=== PATIENT | female | born 1990 | race Caucasian/White ===

== ENCOUNTER 2017-12-02 14:02 | Emergency (ER) | payer SELFPAY ==
[2017-12-02] MEDS ORDERED: NA CHLORIDE 0.9% 1,000 ML ONE (16:56)
[2017-12-02] MEDS ORDERED: ONDANSETRON 4 MG/2 ML VIAL ONE (16:56)
--- NOTE | 2017-12-02 17:48 | ER ---
Nurse's Notes [facility] Name: Alis Baumann Age: 27 yrs Sex: Female : 1990 Arrival Date: 12/02/2017 Time: 14:05 Bed 25 Private MD: None, None Diagnosis: Acute pharyngitis Presentation: 12/02 14:22 Presenting complaint: Patient states: headache, vomiting, sore throat, tired, feeling ch hot and cold started Friday. Transition of care: patient was not received from another setting of care. Onset of symptoms was November 30, 2017. Initial Sepsis Screen: Does the patient meet any 2 criteria? No. Patient's initial sepsis screen is negative. Does the patient have a suspected source of infection? No. Patient's initial sepsis screen is negative. 14:22 Method Of Arrival: Ambulatory 14:22 Acuity: MELODY 4 19:07 Care prior to arrival: None. aj1 Triage Assessment: 14:23 Headache History: The patient has had previous headaches. General: Appears in no ch apparent distress. comfortable, Behavior is calm, cooperative, appropriate for age. Pain: Complains of pain in right frontal area and right temporal area Pain currently is 8 out of 10 on a pain scale. Pain began gradually. Neuro: Level of Consciousness is awake, alert, obeys commands, Oriented to person, place, time, situation, Reports headache. 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 - Social history:: Smoking status: Patient/guardian denies using tobacco, Patient/guardian denies using alcohol, street drugs. Screenin:45 Abuse screen: Denies threats or abuse. Denies injuries from another. Nutritional aj1 screening: No deficits noted. Tuberculosis screening: No symptoms or risk factors identified. Fall Risk None identified. Assessment: 16:45 General: Appears in no apparent distress. uncomfortable, Behavior is calm, cooperative, aj1 appropriate for age. Pain: Complains of pain in left aspect of posterior pharynx and right aspect of posterior pharynx Pain does not radiate. Pain currently is 8 out of 10 on a pain scale. Quality of pain is described as sharp. Neuro: Level of Consciousness is awake, alert, obeys commands, Oriented to person, place, time, situation, Speech is normal, Facial symmetry appears normal. Cardiovascular: Patient's skin is warm and dry. Respiratory: Airway is patent Respiratory effort is even, unlabored, Respiratory pattern is regular, symmetrical. GI: No signs and/or symptoms were reported involving the gastrointestinal system. : No signs and/or symptoms were reported regarding the genitourinary system. EENT: Throat is reddened has enlarged tonsils bilaterally. Derm: No signs and/or symptoms reported regarding the dermatologic system. Skin is pink, warm \T\ dry. normal. Musculoskeletal: No signs and/or symptoms reported regarding the musculoskeletal system. Circulation, motion, and sensation intact. 17:45 Reassessment: Patient appears in no apparent distress at this time. No changes from [facility] previously documented assessment. Patient and/or family updated on plan of care and expected duration. Pain level reassessed. Patient is alert, oriented x 3, equal unlabored respirations, skin warm/dry/pink. 18:45 Reassessment: Patient appears in no apparent distress at this time. No changes from [facility] previously documented assessment. Patient and/or family updated on plan of care and expected duration. Pain level reassessed. Patient is alert, oriented x 3, equal unlabored respirations, skin warm/dry/pink. Vital Signs: 14:23 BP 112 / 78; Pulse 92; Resp 16; Temp 98.9(O); Pulse Ox 99% on R/A; Weight 89.81 kg; Height 5 ft. 1 in. (154.94 cm); Pain 9/10; 16:45 BP 116 / 82; Pulse 88; Resp 18; Pulse Ox 99% on R/A; aj1 17:45 BP 127 / 77; Pulse 76; Resp 18; Pulse Ox 99% ; aj1 19:07 BP 122 / 65; Pulse 75; Resp 18; Pulse Ox 99% ; aj1 14:23 Body Mass Index 37.41 (89.81 kg, 154.94 cm) ED Course: 14:05 Patient arrived in ED. mr 14:06 None, None is Private Physician. mr 14:23 Triage completed. 14:23 Arm band placed on right wrist. Patient placed in waiting room. 15:39 Sabra Jorge FNP-C is [facility]. kb 15:39 Vincent Gonzales MD is Attending Physician. kb 16:45 Jocelyn Velazco, RN is Primary Nurse. aj1 16:45 Patient has correct armband on for positive identification. Bed in low position. Call aj1 light in reach. 16:45 No provider procedures requiring assistance completed. Inserted saline lock: 20 gauge aj1 in right antecubital area, using aseptic technique. 19:07 IV discontinued, intact, bleeding controlled, No redness/swelling at site. Pressure aj1 dressing applied. Administered Medications: 17:11 Drug: NS 0.9% 1000 ml Route: IV; Rate: 1000 ml; Site: right antecubital; aj1 19:08 Follow up: IV Status: Completed infusion; IV Intake: 1000ml aj 17:12 Drug: Zofran 4 mg Route: IVP; Site: right antecubital; aj1 19:08 Follow up: Response: No adverse reaction aj Intake: 19:08 IV: 1000ml; Total: 1000ml. aj Outcome: 17:47 Discharge ordered by . kb 19:07 Discharged to home ambulatory. aj1 19:07 Condition: good 19:07 Discharge instructions given to patient, Instructed on discharge instructions, follow up and referral plans. Demonstrated understanding of instructions, follow-up care. 19:08 Patient left the ED. aj Signatures: Sabra Jorge FNP-C FNP-Ckb Hammond, Christina, RN RN Jocelyn Velazco RN RN [facility] Arlyn Saucedo
--- NOTE | 2017-12-02 17:48 | EDPHYS ---
Physician Documentation [facility] Name: Alis Baumann Age: 27 yrs Sex: Female : 1990 Arrival Date: 12/02/2017 Time: 14:05 Bed 25 Private MD: None, None ED Physician Vincent Gonzales HPI: 12/02 17:16 This 27 yrs old Female presents to ER via Ambulatory with complaints of kb Headache, Vomiting. 17:16 This 27 yrs old Female presents to ER via Ambulatory with complaints of sore kb throat. 17:16 The patient presents with sore throat. The patient describes throat pain as constant. kb 17:16 Onset: The symptoms/episode began/occurred 2 day(s) ago. Severity of symptoms: At their kb worst the symptoms were moderate, in the emergency department the symptoms are unchanged. Modifying factors: The symptoms are alleviated by nothing, the symptoms are aggravated by swallowing, Patient's oral intake status: good Denies contact with similarly ill indivduals. Associated signs and symptoms: Pertinent positives: headache, nausea, rhinorrhea, Sore throat vomiting. The patient has not experienced similar symptoms in the past. The patient has not recently seen a physician. 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 - Social history:: Smoking status: Patient/guardian denies using tobacco, Patient/guardian denies using alcohol, street drugs. ROS: 17:18 Cardiovascular: Negative for chest pain, palpitations, and edema, Respiratory: Negative kb for shortness of breath, cough, wheezing, and pleuritic chest pain, Back: Negative for injury and pain, : Negative for injury, bleeding, discharge, and swelling, MS/Extremity: Negative for injury and deformity, Skin: Negative for injury, rash, and discoloration. 17:18 Constitutional: Positive for fever, malaise, Negative for body aches, chills, fatigue, poor PO intake, weight loss. 17:18 ENT: Positive for rhinorrhea, sinus congestion, sore throat. 17:18 Abdomen/GI: Positive for nausea and vomiting, Negative for abdominal pain, diarrhea, constipation, abdominal cramps, abdominal distension, anorexia. Exam: 17:24 Constitutional: This is a well developed, well nourished patient who is awake, alert, kb and in no acute distress. Head/Face: Normocephalic, atraumatic. Chest/axilla: Normal chest wall appearance and motion. Nontender with no deformity. No lesions are appreciated. Cardiovascular: Regular rate and rhythm with a normal S1 and S2. No gallops, murmurs, or rubs. Normal PMI, no JVD. No pulse deficits. Respiratory: Lungs have equal breath sounds bilaterally, clear to auscultation and percussion. No rales, rhonchi or wheezes noted. No increased work of breathing, no retractions or nasal flaring. Abdomen/GI: Soft, non-tender, with normal bowel sounds. No distension or tympany. No guarding or rebound. No evidence of tenderness throughout. Skin: Warm, dry with normal turgor. Normal color with no rashes, no lesions, and no evidence of cellulitis. MS/ Extremity: Pulses equal, no cyanosis. Neurovascular intact. Full, normal range of motion. Neuro: Awake and alert, GCS 15, oriented to person, place, time, and situation. Cranial nerves II-XII grossly intact. Motor strength 5/5 in all extremities. Sensory grossly intact. Cerebellar exam normal. Normal gait. 17:24 ENT: External ear(s): are unremarkable, Ear canal(s): are normal, TM's: are normal, Nose: is normal, Mouth: is normal, Posterior pharynx: Airway: normal, Tonsils: bilaterally enlarged, with erythema, Uvula: normal, midline, swelling, that is moderate, erythema, that is mild, exudate, is not appreciated. Vital Signs: 14:23 BP 112 / 78; Pulse 92; Resp 16; Temp 98.9(O); Pulse Ox 99% on R/A; Weight 89.81 kg; ch Height 5 ft. 1 in. (154.94 cm); Pain 9/10; 16:45 BP 116 / 82; Pulse 88; Resp 18; Pulse Ox 99% on R/A; aj1 17:45 BP 127 / 77; Pulse 76; Resp 18; Pulse Ox 99% ; aj1 19:07 BP 122 / 65; Pulse 75; Resp 18; Pulse Ox 99% ; aj1 14:23 Body Mass Index 37.41 (89.81 kg, 154.94 cm) MDM: 15:46 Patient medically screened. kb 17:18 Data reviewed: vital signs, nurses notes. Data interpreted: Pulse oximetry: on room air kb is 99 %. Interpretation: normal. 17:46 Counseling: I had a detailed discussion with the patient and/or guardian regarding: the kb historical points, exam findings, and any diagnostic results supporting the discharge/admit diagnosis, lab results, the need for outpatient follow up, a family practitioner, to return to the emergency department if symptoms worsen or persist or if there are any questions or concerns that arise at home. 12/02 14:23 Order name: Flu; Complete Time: 15:40 12/02 14:23 Order name: Strep; Complete Time: 15:40 12/02 15:04 Order name: Throat Culture EDMS 12/02 15:51 Order name: [place] Screen Profile; Complete Time: 17:43 kb 12/02 17:36 Order name: Urine Dipstick--Ancillary (enter results); Complete Time: 17:54 ag 12/02 17:36 Order name: Urine --Ancillary (enter results); Complete Time: 17:54 ag 12/02 15:51 Order name: Urine Dipstick-Ancillary (obtain specimen); Complete Time: 17:56 kb Administered Medications: 17:11 Drug: NS 0.9% 1000 ml Route: IV; Rate: 1000 ml; Site: right antecubital; aj1 19:08 Follow up: IV Status: Completed infusion; IV Intake: 1000ml aj1 17:12 Drug: Zofran 4 mg Route: IVP; Site: right antecubital; aj1 19:08 Follow up: Response: No adverse reaction aj1 Disposition: 12/02/17 17:47 Discharged to Home. Impression: Acute pharyngitis. - Condition is Stable. - Discharge Instructions: Pharyngitis, [id number], Viral Infections, [id number], Sore Throat, [id number]. - Medication Reconciliation Form, Thank You Letter, Antibiotic Education, Prescription Opioid Use form. - Follow up: Emergency Department; When: As needed; Reason: Worsening of condition. Follow up: Private Physician; When: 2 - 3 days; Reason: Recheck today's complaints, Continuance of care, Re-evaluation by your physician. Addendum: 12/07/2017 19:50 Co-signature as Attending Physician, Vincent Gonzales MD. m a2 Signatures: Dispatcher [employer] EDMS Sabra Jorge, HERIBERTO-C CLASS A LINEMAN-Marely Brown RN RN Jocelyn Peters RN RN aj1 Vincent Gonzales MD MD ma2 Corrections: (The following items were deleted from the chart) 12/02 19:08 17:47 12/02/2017 17:47 Discharged to Home. Impression: Acute pharyngitis. Condition is aj1 Stable. Forms are Medication Reconciliation Form, Thank You Letter, Antibiotic Education, Prescription Opioid Use. Follow up: Emergency Department; When: As needed; Reason: Worsening of condition. Follow up: Private Physician; When: 2 - 3 days; Reason: Recheck today's complaints, Continuance of care, Re-evaluation by your physician. kb
[2017-12-02 17:53] LABS: Urine Blood NEGATIVE (NEG); Urine Glucose NEGATIVE (NEG); Urine Protein 2+ (NEG); Urine pH 7.5 (5.0-7.0)
[2017-12-02 19:13] VITALS: TEMP 98.9; O2SAT 99
[2017-12-02 19:17] VITALS: BP 122/65
== END 2017-12-02 19:08 | disposition home or self-care (01) ==
LOC: ER 14:02
DX: J02.9 Acute pharyngitis, unspecified (principal); R11.10 Vomiting, unspecified
CPT/HCPCS: 36415; 81003; 81025; 86308; 87070; 87081; 87804; 96361; 96374; 99283; J2405; J7030

== ENCOUNTER 2019-10-10 04:05 | Emergency (ER) | payer SELFPAY ==
--- OUTSIDE RECORDS SUMMARY | 2019-10-10 04:08 | XMS REPORT ---
:1990 [facility] Address [address] [place] [address] Dr. Bernabe [address] [place] [id number] Care Team Providers Name Role Phone Unavailable Unavailable Unavailable Problems This patient has no known problems. Allergies, Adverse Reactions, Alerts This patient has no known allergies or adverse reactions. Medications This patient has no known medications.
[2019-10-10] MEDS ORDERED: MORPHINE 4 MG/ML SYR ONE (04:30)
[2019-10-10] MEDS ORDERED: ONDANSETRON 4 MG/2 ML VIAL ONE (04:30)
[2019-10-10] MEDS ORDERED: MAGNE/ALUM HYDROXD 30 ML UCUP ONE (04:30)
[2019-10-10] MEDS ORDERED: FAMOTIDINE 20 MG/2 ML VIAL IV ONE (04:31)
[2019-10-10] MEDS ORDERED: LIDOCAINE VISCOUS 2% SOLN 15 ML UDC ONE (04:31)
[2019-10-10] MEDS ORDERED: NA CHLORIDE 0.9% 1,000 ML ONE (04:31)
[2019-10-10 04:50] LABS: Absolute Lymphocytes (CBC) 3.1 K/uL (0.7-4.9); Basophils % 0.6 % (0-1.3); Hematocrit 30.3 % (36.0-45.0); Lymphocytes % 33.9 % (15.3-44.8); MPV 8.7 fL (7.6-11.3); RBC Red Blood Cell Count 4.43 M/uL (3.86-4.86)
[2019-10-10 05:08] LABS: ALT/SGPT 20 U/L (12-78); AST/SGOT 14 U/L (15-37); Albumin 3.5 g/dL (3.4-5.0); Alkaline Phosphatase 77 U/L (45-117); BUN Blood Urea Nitrogen 11 mg/dL (7-18); Bicarbonate 28 mmol/L (21-32); Bilirubin Direct < 0.1 mg/dL (0-0.2); Bilirubin Total 0.2 mg/dL (0.2-1.0); Glucose Level 102 mg/dL (74-106); Lipase 157 U/L (73-393); Potassium 3.4 mmol/L (3.5-5.1); Protein, Total 7.8 g/dL (6.4-8.2); Sodium Level 139 mmol/L (136-145)
--- NOTE | 2019-10-10 05:54 | ER ---
Nurse's Notes [facility] Name: Alis Baumann Age: 28 yrs Sex: Female : 1990 Arrival Date: 10/10/2019 Time: 04:10 Bed 14 Private MD: Diagnosis: Upper abdominal pain, unspecified Presentation: 10/09 04:12 Chief complaint: Patient states: Mid chest pressure constant for 2 weeks int. N/V for 2 ll1 weeks constantly. Coronavirus screen: The patient has NOT traveled to a country currently being monitored by the [facility] within the last 14 days. Proceed with normal triage procedures. Ebola Screen: Patient denies travel to an Ebola-affected area in the 21 days before illness onset. Initial Sepsis Screen: Does the patient meet any 2 criteria? No. Patient's initial sepsis screen is negative. Does the patient have a suspected source of infection? No. Patient's initial sepsis screen is negative. Risk Assessment: Do you want to hurt yourself or someone else? Patient reports no desire to harm self or others. 04:12 Method Of Arrival: Ambulatory ll1 04:12 Acuity: MELODY 3 ll1 04:53 Onset of symptoms is unknown. RATING EXAMINER: 04:52 LMP 09/2019 Historical: - Allergies: 04:14 Ibuprofen; ll1 - PMHx: 04:14 Endometrosis; ll1 - PSHx: 04:14 None; ll1 - Immunization history:: Flu vaccine is not up to date. - Social history:: Patient/guardian denies using alcohol, street drugs, tobacco products, Patient/guardian denies using The patient lives with spouse, Smoking status: Patient/guardian denies using. - Family history:: not pertinent. Screenin:51 Abuse screen: Denies threats or abuse. Denies injuries from another. Nutritional screening: No deficits noted. Tuberculosis screening: No symptoms or risk factors identified. Fall Risk None identified. Assessment: 04:20 General: Appears in no apparent distress. uncomfortable, Behavior is calm, cooperative, wh appropriate for age. Pain: Complains of pain in diaphragm and mid-sternal area and abdominal pain Pain does not radiate. Pain currently is 8 out of 10 on a pain scale. Quality of pain is described as pressure, Pain began 2 weeks ago Is intermittent. Neuro: Level of Consciousness is awake, alert, obeys commands, Oriented to person, place, time, situation, Appropriate for age. Cardiovascular: Reports chest pain, Heart tones S1 S2 Rhythm is regular. Respiratory: Airway is patent Respiratory effort is even, unlabored, Respiratory pattern is regular, symmetrical, Breath sounds are clear bilaterally. GI: Abdomen is flat, non-distended, Bowel sounds present X 4 quads. Abd is soft and non tender X 4 quads. Reports nausea, vomiting. : No signs and/or symptoms were reported regarding the genitourinary system. EENT: No signs and/or symptoms were reported regarding the EENT system. Derm: Skin is intact, is healthy with good turgor, Skin is pink, warm \T\ dry. normal. Musculoskeletal: Circulation, motion, and sensation intact. 06:07 Reassessment: Patient appears in no apparent distress at this time. No changes from previously documented assessment. Patient and/or family updated on plan of care and expected duration. Pain level reassessed. Patient is alert, oriented x 3, equal unlabored respirations, skin warm/dry/pink. Patient states feeling better. Patient states symptoms have improved. Vital Signs: 04:12 BP 122 / 51; Pulse 72; Resp 18; Temp 97.4; Pulse Ox 100% ; Weight 81.65 kg; Height 4 ll1 ft. 9 in. (144.78 cm); Pain 10/10; 04:52 BP 126 / 69; Pulse 59; Resp 18; Pulse Ox 99% on R/A; wh 06:07 BP 117 / 74; Pulse 54; Resp 18; Pulse Ox 98% on R/A; wh 04:12 Body Mass Index 38.95 (81.65 kg, 144.78 cm) ll1 ED Course: 04:10 Patient arrived in ED. es 04:12 Vincent Gonzales MD is Attending Physician. ma2 04:14 Triage completed. ll1 04:14 Arm band placed on Patient placed in an exam room. ll1 04:23 Sonya Craven is Primary Nurse. wh 04:28 EKG completed in triage. Results shown to MD. ll1 04:30 Patient has correct armband on for positive identification. Placed in gown. Bed in low position. Call light in reach. Side rails up X 1. Pulse ox on. NIBP on. 04:40 Inserted saline lock: 20 gauge in right antecubital area, using aseptic technique. Blood collected. Patient maintains SpO2 saturation greater than 95% on room air. 06:10 No provider procedures requiring assistance completed. IV discontinued, intact, bleeding controlled, No redness/swelling at site. Administered Medications: 04:40 Drug: GI Cocktail without - (Maalox Suspension 30 ml, Lidocaine Liquid 2 % 15 wh ml) Route: PO; 06:07 Follow up: Response: No adverse reaction; Pain is decreased 04:41 Drug: NS 0.9% 1000 ml Route: IV; Rate: 1 bolus; Site: right antecubital; 06:08 Follow up: Response: No adverse reaction; IV Status: Completed infusion 04:43 Drug: Pepcid 20 mg Route: IVP; Site: right antecubital; 06:08 Follow up: Response: No adverse reaction 04:45 Drug: morphine 4 mg {Note: RASS 0.} Route: IVP; Site: right antecubital; 06:08 Follow up: Response: No adverse reaction; Pain is decreased; RASS: Alert and Calm (0) 04:47 Drug: Zofran (Ondansetron) 4 mg Route: IVP; Site: right antecubital; 06:08 Follow up: Response: No adverse reaction; Nausea is decreased Outcome: 05:53 Discharge ordered by MD. sung 06:10 Discharged to home ambulatory, with family. 06:10 Condition: stable 06:10 Discharge instructions given to patient, family, Instructed on discharge instructions, follow up and referral plans. medication usage, POC Demonstrated understanding of instructions, follow-up care, medications, POC Prescriptions given X 2. 06:10 Patient left the ED. Signatures: Patricia Ron Winsy Vincent Gonzales MD MD ma2 Florian Romano RN RN ll1
--- NOTE | 2019-10-10 05:54 | EDPHYS ---
Physician Documentation [facility] Name: Alis Baumann Age: 28 yrs Sex: Female : 1990 Arrival Date: 10/10/2019 Time: 04:10 Bed 14 Private MD: ED Physician Vincent Gonzales HPI: 10/09 05:51 This 28 yrs old Female presents to ER via Ambulatory with complaints of Chest ma2 Pain, Vomiting. 05:51 The patient or guardian reports chest pain that is located primarily in the epigastric ma2 area. The pain does not radiate. Associated signs and symptoms: Pertinent negatives: cough, headache, lower extremity swelling. The chest pain is described as burning. Severity of pain: At its worst the pain was mild in the emergency department the pain is unchanged. The patient has experienced similar episodes in the past. 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 - Social history:: Patient/guardian denies using alcohol, street drugs, tobacco products, Patient/guardian denies using The patient lives with spouse, Smoking status: Patient/guardian denies using. - Family history:: not pertinent. ROS: 05:51 Constitutional: Negative for fever, chills, and weight loss, Cardiovascular: Negative ma2 for chest pain, palpitations, and edema, Respiratory: Negative for shortness of breath, cough, wheezing, and pleuritic chest pain, Abdomen/GI: Negative for abdominal pain, nausea, diarrhea, and constipation, Back: Negative for injury and pain, : Negative for injury, bleeding, discharge, and swelling, MS/Extremity: Negative for injury and deformity, Skin: Negative for injury, rash, and discoloration, Neuro: Negative for headache, weakness, numbness, tingling, and seizure, Psych: Negative for depression, anxiety, suicide ideation, homicidal ideation, and hallucinations, Allergy/Immunology: Negative for hives, rash, and allergies, Endocrine: Negative for neck swelling, polydipsia, polyuria, polyphagia, and marked weight changes. 05:51 All other systems are negative. Exam: 05:51 Constitutional: This is a well developed, well nourished patient who is awake, alert, ma2 and in no acute distress. Chest/axilla: Normal chest wall appearance and motion. Nontender with no deformity. No lesions are appreciated. Cardiovascular: Regular rate and rhythm with a normal S1 and S2. No gallops, murmurs, or rubs. Normal PMI, no JVD. No pulse deficits. Respiratory: Lungs have equal breath sounds bilaterally, clear to auscultation and percussion. No rales, rhonchi or wheezes noted. No increased work of breathing, no retractions or nasal flaring. Abdomen/GI: Soft, non-tender, with normal bowel sounds. No distension or tympany. No guarding or rebound. No evidence of tenderness throughout. Skin: Warm, dry with normal turgor. Normal color with no rashes, no lesions, and no evidence of cellulitis. MS/ Extremity: Pulses equal, no cyanosis. Neurovascular intact. Full, normal range of motion. Vital Signs: 04:12 BP 122 / 51; Pulse 72; Resp 18; Temp 97.4; Pulse Ox 100% ; Weight 81.65 kg; Height 4 ll1 ft. 9 in. (144.78 cm); Pain 10/10; 04:52 BP 126 / 69; Pulse 59; Resp 18; Pulse Ox 99% on R/A; wh 06:07 BP 117 / 74; Pulse 54; Resp 18; Pulse Ox 98% on R/A; wh 04:12 Body Mass Index 38.95 (81.65 kg, 144.78 cm) ll1 MDM: 04:12 Patient medically screened. ma2 05:51 Differential diagnosis: gastritis, gastroesophageal reflux disease (GERD), peptic ulcer ma2 disease. NEGRO Risk Score: not applicable. Data reviewed: vital signs. Data reviewed: nurses notes, lab test result(s). Counseling: I had a detailed discussion with the patient and/or guardian regarding: the historical points, exam findings, and any diagnostic results supporting the discharge/admit diagnosis, the presence of at least one elevated blood pressure reading (>120/80) during this emergency department visit, the need for outpatient follow up. Response to treatment: the patient's symptoms have resolved after treatment. 10/09 04:22 Order name: Basic Metabolic Panel; Complete Time: 05:13 ma2 08 04:22 Order name: CBC with Diff 10/09 04:22 Order name: Creatinine for Radiology 10/09 04:22 Order name: Hepatic Function; Complete Time: 05:13 wy10/09 04:22 Order name: Lipase; Complete Time: 05:13 10/09 04:22 Order name: IV Saline Lock; Complete Time: 04:42 wy10/09 04:22 Order name: Labs collected and sent; Complete Time: 04:42 wy10/09 04:24 Order name: EKG - Nurse/Tech; Complete Time: 04:41 Administered Medications: 04:40 Drug: GI Cocktail without - (Maalox Suspension 30 ml, Lidocaine Liquid 2 % 15 wh ml) Route: PO; 06:07 Follow up: Response: No adverse reaction; Pain is decreased 04:41 Drug: NS 0.9% 1000 ml Route: IV; Rate: 1 bolus; Site: right antecubital; 06:08 Follow up: Response: No adverse reaction; IV Status: Completed infusion 04:43 Drug: Pepcid 20 mg Route: IVP; Site: right antecubital; 06:08 Follow up: Response: No adverse reaction 04:45 Drug: morphine 4 mg {Note: RASS 0.} Route: IVP; Site: right antecubital; 06:08 Follow up: Response: No adverse reaction; Pain is decreased; RASS: Alert and Calm (0) 04:47 Drug: Zofran (Ondansetron) 4 mg Route: IVP; Site: right antecubital; 06:08 Follow up: Response: No adverse reaction; Nausea is decreased Disposition: 10/10/19 05:53 Discharged to Home. Impression: Upper abdominal pain, unspecified. - Condition is Stable. - Discharge Instructions: Abdominal Pain, Adult. - Prescriptions for Zofran 4 mg Oral Tablet - take 1 tablet by ORAL route every 12 hours As needed; 6 tablet. Pepcid 20 mg Oral Tablet - take 1 tablet by ORAL route once daily; 20 tablet. - Medication Reconciliation Form, Thank You Letter, Antibiotic Education, Prescription Opioid Use form. - Follow up: Private Physician; When: Tomorrow; Reason: Continuance of care. Signatures: Dispatcher [employer] Sonya Hart Vincent Gonzales MD MD ma2 Florian Romano RN RN ll1 Corrections: (The following items were deleted from the chart) 06:10 05:53 10/10/2019 05:53 Discharged to Home. Impression: Upper abdominal pain, wh unspecified. Condition is Stable. Prescriptions for Zofran 4 mg Oral Tablet - take 1 tablet by ORAL route every 12 hours As needed; 6 tablet, Pepcid 20 mg Oral Tablet - take 1 tablet by ORAL route once daily; 20 tablet. and Forms are Medication Reconciliation Form, Thank You Letter, Antibiotic Education, Prescription Opioid Use. Follow up: Private Physician; When: Tomorrow; Reason: Continuance of care. ma2
[2019-10-10 06:29] LABS: Anisocytosis 1+; Blood Morphology Comment NOTED (NOT SEEN); Hypochromasia 1+; Ovalocytes 1+; Platelet Estimate ADEQ
[2019-10-10 06:36] VITALS: BP 117/74; O2SAT 98
[2019-10-10 06:55] VITALS: TEMP 97.4
--- NOTE | 2019-10-10 12:48 | EKG ---
Test Date: 2019-10-10 Test Time: 03:28:11 [place] Man: ZECHARIAH MEASUREMENT RESULTS: Intervals: Rate: 65 NC: 162 QRSD: 80 QT: 408 QTc: 424 [place]: P: 34 NC: 162 QRS: 17 T: 27 INTERPRETIVE STATEMENTS: Normal sinus rhythm Normal ECG No previous ECG available for comparison Electronically Signed On 10-10-19 12:48:10 CDT by Neftaly Campos
== END 2019-10-10 06:10 | disposition home or self-care (01) ==
LOC: ER 04:05
DX: R10.13 Epigastric pain (principal); Z88.6 Allergy status to analgesic agent
CPT/HCPCS: 36415; 80048; 80076; 83690; 85025; 93005; 96361; 96374; 96375; 99284; J2405; J7030

== ENCOUNTER 2019-10-30 15:03 | Emergency (ER) | payer SELFPAY ==
--- OUTSIDE RECORDS SUMMARY | 2019-10-30 15:05 | XMS REPORT ---
:1990 [facility] Address [address] [place] [address] Dr. Bernabe [address] [place] [id number] Care Team Providers Name Role Phone Unavailable Unavailable Unavailable Problems This patient has no known problems. Allergies, Adverse Reactions, Alerts This patient has no known allergies or adverse reactions. Medications This patient has no known medications.
--- NOTE | 2019-10-30 16:21 | RAD REPORT ---
EXAM DESCRIPTION: RAD - Chest Pa And Lat (2 Views) - 10/30/2019 4:12 pm CLINICAL HISTORY: COUGH Chest pain. COMPARISON: Chest Single View dated 10/26/2019; Chest Pa And Lat (2 Views) dated 06/02/2019; Chest Si ngle View dated 06/01/2019; Chest Single View dated 05/30/2019No comparisons FINDINGS: The lungs are clear. The heart is normal in size. No displaced fractures. IMPRESSION: No acute or concerning finding suspected.
[2019-10-30] MEDS ORDERED: NA CHLORIDE 0.9% 1,000 ML ONE (16:27)
[2019-10-30 16:36] LABS: Hematocrit 33.4 % (36.0-45.0); MPV 8.4 fL (7.6-11.3)
[2019-10-30 16:43] LABS: Urine Blood NEGATIVE (NEG); Urine Glucose NEGATIVE (NEG); Urine Protein NEGATIVE (NEG); Urine Specific Gravity >1.030 (1.005-1.030); Urine pH 5.5 (5.0-7.0)
[2019-10-30 17:04] LABS: Albumin 3.5 g/dL (3.4-5.0); Bilirubin Total 0.2 mg/dL (0.2-1.0); Potassium 3.9 mmol/L (3.5-5.1); Protein, Total 8.1 g/dL (6.4-8.2); Thyroid Stimulating Hormone 1.84 uIU/mL (0.360-3.740)
--- NOTE | 2019-10-30 17:11 | ER ---
Nurse's Notes [facility] Name: Alis Baumann Age: 28 yrs Sex: Female : 1990 Arrival Date: 10/30/2019 Time: 15:05 Bed 20 Private MD: Diagnosis: Malaise and fatigue;Cough;Anemia, unspecified Presentation: 10/29 15:21 Chief complaint: Patient states: I LEFT WORK EARLY CAUSE I FELT REALLY FATIGUED AND I bp HAD A HEADACHE. Coronavirus screen: Patient denies fever greater than 100.4F, cough, shortness of breath, or difficulty breathing. Ebola Screen: No symptoms or risks identified at this time. Initial Sepsis Screen: Does the patient meet any 2 criteria? No. Patient's initial sepsis screen is negative. Does the patient have a suspected source of infection? No. Patient's initial sepsis screen is negative. Risk Assessment: Do you want to hurt yourself or someone else? Patient reports no desire to harm self or others. 15:21 Method Of Arrival: Ambulatory bp 15:21 Acuity: MELODY 5 bp Triage Assessment: 15:23 General: Appears in no apparent distress. comfortable, obese, Behavior is cooperative, bp appropriate for age, anxious. Pain: Complains of pain in head. EENT: No deficits noted. Neuro: No deficits noted. Cardiovascular: No deficits noted. Respiratory: No deficits noted. GI: No signs and/or symptoms were reported involving the gastrointestinal system. : No signs and/or symptoms were reported regarding the genitourinary system. Derm: No deficits noted. Musculoskeletal: No deficits noted. 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 - Social history:: Smoking status: Patient denies any tobacco usage or history of. Screenin:24 Abuse screen: Denies threats or abuse. Denies injuries from another. Nutritional bp screening: No deficits noted. Tuberculosis screening: No symptoms or risk factors identified. Fall Risk None identified. Assessment: 15:26 General: Appears in no apparent distress. comfortable, Behavior is calm, cooperative. ae4 Pain: Denies pain. Pain: Complains of pain in head and back of head Pain currently is 8 out of 10 on a pain scale. Neuro: Level of Consciousness is awake, alert, obeys commands, Oriented to person, place, time, situation, Appropriate for age. Cardiovascular: Heart tones S1 S2 present Patient's skin is warm and dry. Respiratory: Airway is patent Respiratory effort is even, unlabored, Respiratory pattern is regular, symmetrical, Breath sounds are clear bilaterally. GI: Abdomen is round non-distended, obese, Reports constipation, Patient currently denies diarrhea, nausea, vomiting. : No signs and/or symptoms were reported regarding the genitourinary system. EENT: No signs and/or symptoms were reported regarding the EENT system. Derm: Skin is normal. Musculoskeletal: Reports Feeling fatigue and overall weakness. 16:30 Reassessment: Patient appears in no apparent distress at this time. Patient and/or ae4 family updated on plan of care and expected duration. Pain level reassessed. Patient is alert, oriented x 3, equal unlabored respirations, skin warm/dry/pink. Patient states symptoms have improved. Vital Signs: 15:21 BP 115 / 92; Pulse 72; Resp 17; Temp 97.2; Pulse Ox 100% ; Weight 85.73 kg; Height 5 bp ft. 1 in. (154.94 cm); 16:36 BP 142 / 54; Pulse 60; Resp 16; Pulse Ox 100% ; bp 17:38 BP 118 / 62; Pulse 67; Resp 16; Pulse Ox 98% on R/A; ae4 15:21 Body Mass Index 35.71 (85.73 kg, 154.94 cm) bp ED Course: 15:05 Patient arrived in ED. mr 15:22 Triage completed. bp 15:22 Louie Campos MD is Attending Physician. chepe 15:24 Arm band placed on. bp 15:24 Patient has correct armband on for positive identification. Bed in low position. Call bp light in reach. Side rails up X2. 15:26 Ephraim Esquivel, YOLIE is Primary Nurse. ae4 16:11 Chest Pa And Lat (2 Views) XRAY In Process Unspecified. EDMS 16:20 Inserted saline lock: 20 gauge in right antecubital area, using aseptic technique. bp Blood collected. 17:36 No provider procedures requiring assistance completed. IV discontinued, intact, ae4 bleeding controlled, No redness/swelling at site. Pressure dressing applied. Administered Medications: 16:20 Drug: NS 0.9% 1000 ml Route: IV; Rate: 1 bolus; Site: right antecubital; bp 17:00 Follow up: IV Intake: 1000ml ae4 17:00 Follow up: IV Status: Completed infusion ae4 Intake: 17:00 IV: 1000ml; Total: 1000ml. ae4 Outcome: 17:09 Discharge ordered by MD. mo 17:36 Discharged to home ambulatory. ae4 17:36 Condition: stable 17:36 Discharge instructions given to patient, Instructed on discharge instructions, follow up and referral plans. Demonstrated understanding of instructions. 17:40 Patient left the ED. ae4 Signatures: Dispatcher [employer] EDMS Louie Campos MD MD cha Rivera, Mary mr Peltier, Brian, RN RN Ephraim Youngblood RN RN ae4
--- NOTE | 2019-10-30 17:11 | EDPHYS ---
Physician [facility]ation [facility] Name: Alis Baumann Age: 28 yrs Sex: Female : 1990 Arrival Date: 10/30/2019 Time: 15:05 Bed 20 Private MD: ED Physician Louie Campos HPI: 10/29 16:00 This 28 yrs old Female presents to ER via Ambulatory with complaints of chepe Cough, Fatigue. 16:00 The patient or guardian reports cough. Onset: The symptoms/episode began/occurred 2 chepe day(s) ago. 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 - Social history:: Smoking status: Patient denies any tobacco usage or history of. ROS: 16:01 Constitutional: Negative for fever, chills, and weight loss, Eyes: Negative for injury, chepe pain, redness, and discharge, ENT: Negative for injury, pain, and discharge, Neck: Negative for injury, pain, and swelling, Cardiovascular: Negative for chest pain, palpitations, and edema, Abdomen/GI: Negative for abdominal pain, nausea, vomiting, diarrhea, and constipation, Back: Negative for injury and pain, : Negative for injury, bleeding, discharge, and swelling, MS/Extremity: Negative for injury and deformity, Skin: Negative for injury, rash, and discoloration, Psych: Negative for depression, anxiety, suicide ideation, homicidal ideation, and hallucinations, Allergy/Immunology: Negative for hives, rash, and allergies, Endocrine: Negative for neck swelling, polydipsia, polyuria, polyphagia, and marked weight changes, Hematologic/Lymphatic: Negative for swollen nodes, abnormal bleeding, and unusual bruising. 16:01 Respiratory: Positive for cough, with no reported sputum. 16:01 Neuro: Positive for weakness. Exam: 16:01 Constitutional: This is a well developed, well nourished patient who is awake, alert, chepe and in no acute distress. Head/Face: Normocephalic, atraumatic. Eyes: Pupils equal round and reactive to light, extra-ocular motions intact. Lids and lashes normal. Conjunctiva and sclera are non-icteric and not injected. Cornea within normal limits. Periorbital areas with no swelling, redness, or edema. ENT: Nares patent. No nasal discharge, no septal abnormalities noted. Tympanic membranes are normal and external auditory canals are clear. Oropharynx with no redness, swelling, or masses, exudates, or evidence of obstruction, uvula midline. Mucous membranes moist. Neck: Trachea midline, no thyromegaly or masses palpated, and no cervical lymphadenopathy. Supple, full range of motion without nuchal rigidity, or vertebral point tenderness. No Meningismus. Chest/axilla: Normal chest wall appearance and motion. Nontender with no deformity. No lesions are appreciated. Cardiovascular: Regular rate and rhythm with a normal S1 and S2. No gallops, murmurs, or rubs. Normal PMI, no JVD. No pulse deficits. Respiratory: Lungs have equal breath sounds bilaterally, clear to auscultation and percussion. No rales, rhonchi or wheezes noted. No increased work of breathing, no retractions or nasal flaring. Abdomen/GI: Soft, non-tender, with normal bowel sounds. No distension or tympany. No guarding or rebound. No evidence of tenderness throughout. Back: No spinal tenderness. No costovertebral tenderness. Full range of motion. Skin: Warm, dry with normal turgor. Normal color with no rashes, no lesions, and no evidence of cellulitis. MS/ Extremity: Pulses equal, no cyanosis. Neurovascular intact. Full, normal range of motion. Neuro: Awake and alert, GCS 15, oriented to person, place, time, and situation. Cranial nerves II-XII grossly intact. Motor strength 5/5 in all extremities. Sensory grossly intact. Cerebellar exam normal. Normal gait. Psych: Awake, alert, with orientation to person, place and time. Behavior, mood, and affect are within normal limits. Vital Signs: 15:21 BP 115 / 92; Pulse 72; Resp 17; Temp 97.2; Pulse Ox 100% ; Weight 85.73 kg; Height 5 bp ft. 1 in. (154.94 cm); 16:36 BP 142 / 54; Pulse 60; Resp 16; Pulse Ox 100% ; bp 17:38 BP 118 / 62; Pulse 67; Resp 16; Pulse Ox 98% on R/A; ae4 15:21 Body Mass Index 35.71 (85.73 kg, 154.94 cm) bp MDM: 15:22 Patient medically screened. [facility] 16:02 Data reviewed: vital signs, nurses notes, lab test result(s), EKG, radiologic studies, [facility] plain films. 10/29 16:00 Order name: CBC w/o diff; Complete Time: 16:55 [facility] 10/29 16:00 Order name: Comprehensive Metabolic Panel; Complete Time: 17:09 [facility] 10/29 16:00 Order name: TSH; Complete Time: 17:09 [facility] 10/29 16:00 Order name: Influenza Screen (a \T\ B) [facility] 10/29 16:38 Order name: Urine Dipstick--Ancillary (enter results); Complete Time: 16:55 [facility] 10/29 16:38 Order name: Urine --Ancillary (enter results); Complete Time: 16:55 ia 10/29 16:00 Order name: Chest Pa And Lat (2 Views) XRAY; Complete Time: 16:28 [facility] 10/29 16:00 Order name: Urine Dipstick-Ancillary (obtain specimen); Complete Time: 16:33 [facility] 10/29 16:00 Order name: Urine Test (obtain specimen); Complete Time: 16:33 [facility] 10/29 16:02 Order name: EKG; Complete Time: 16:03 [facility] 10/29 16:02 Order name: EKG - Nurse/Tech; Complete Time: 16:33 [facility] Administered Medications: 16:20 Drug: NS 0.9% 1000 ml Route: IV; Rate: 1 bolus; Site: right antecubital; bp 17:00 Follow up: IV Intake: 1000ml ae4 17:00 Follow up: IV Status: Completed infusion ae4 Disposition: 10/30/19 17:09 Discharged to Home. Impression: Malaise and fatigue, Cough, Anemia, unspecified. - Condition is Stable. - Discharge Instructions: Weakness, Cool Mist Vaporizer, Cough, Adult, Vzzy-ss-Cuhx, Weakness, Wbtr-[id number], Cough, Adult. - Work release form, Medication Reconciliation Form, Thank You Letter, Antibiotic Education, Prescription Opioid Use form. - Follow up: Private Physician; When: 2 - 3 days; Reason: Recheck today's complaints, Continuance of care, Re-evaluation by your physician. - Problem is new. - Symptoms have improved. Signatures: Dispatcher [employer] EDLouie Griffith MD MD cha Peltier, Brian RN RN Ephraim Youngblood RN RN ae4 Corrections: (The following items were deleted from the chart) 17:40 17:09 10/30/2019 17:09 Discharged to Home. Impression: Malaise and fatigue; Cough; ae4 Anemia, unspecified. Condition is Stable. Discharge Instructions: Weakness, Cool Mist Vaporizer, Cough, Adult, Ajqn-je-Rdxg, Weakness, Dogd-on-Sahn, Cough, Adult. Forms are Work release form, Medication Reconciliation Form, Thank You Letter, Antibiotic Education, Prescription Opioid Use. Follow up: Private Physician; When: 2 - 3 days; Reason: Recheck today's complaints, Continuance of care, Re-evaluation by your physician. Problem is new. Symptoms have improved. chepe
[2019-10-30 17:48] VITALS: TEMP 97.2
[2019-10-30 17:51] VITALS: BP 118/62; O2SAT 98
--- NOTE | 2019-10-31 09:17 | EKG ---
Test Date: 2019-10-30 Test Time: 16:29:02 [place]add[place] Judge: BP MEASUREMENT RESULTS: Intervals: Rate: 64 NH: 146 QRSD: 78 QT: 400 QTc: 412 [place]: P: 23 NH: 146 QRS: 21 T: 26 INTERPRETIVE STATEMENTS: Normal sinus rhythm with sinus arrhythmia Normal ECG Compared to ECG 10/10/2019 03:28:11 No significant changes Electronically Signed On 10-31-19 09:16:26 CDT by Aguila Martel
== END 2019-10-30 17:40 | disposition home or self-care (01) ==
LOC: ER 15:03
DX: R53.81 Other malaise (principal); R53.83 Other fatigue; D64.9 Anemia, unspecified; Z88.6 Allergy status to analgesic agent
CPT/HCPCS: 36415; 71046; 80053; 81003; 81025; 84443; 85027; 87804; 93005; 96360; 99284; J7030

== ENCOUNTER 2020-03-20 08:12 | Emergency (ER) | payer SELFPAY ==
--- OUTSIDE RECORDS SUMMARY | 2020-03-20 08:14 | XMS REPORT | Continuity of Care Document ---
:1990 Author Organization [facility] t Address [address] [place] [address] Care Team Providers Name Role Phone Mayela Dyan DICKERSON Attending Clinician Doctor Unassigned, Name Attending Clinician Unavailable Aba LOUIS Attending Clinician Problems This patient has no known problems. Allergies, Adverse Reactions, Alerts This patient has no known allergies or adverse reactions. Medications This patient has no known medications. Procedures This patient has no known procedures. Encounters Start End Encounter Admission Attending Care Care Encounter Source Date/Time Date/Time Type Type Clinicians Facility Department ID 2020-01-20 2020-01-20 [facility] JaniyabensaraSTEPHEN [id number] 12:30:00 23:59:00 Encounter [facility] [id number] [facility] [id number] 2019-12-30 2019-12-30 Orders Doctor FRIED [id number] 00:00:00 00:00:00 Only Unassigned, NANCY [id number] [place] [facility] [id number] 2019-12-01 2019-12-01 Office STEPHEN Troncoso .[id number] 08:53:02 09:59:03 Visit [facility] [id number] [facility] [id number] Results This patient has no known results.
--- OUTSIDE RECORDS SUMMARY | 2020-03-20 08:14 | XMS REPORT | Summary of Care ---
:1990 Author Organization [facility] - Health Address [address] [place] [address] Care Team Providers Name Role Phone Pcp, Patient Does Not Have A Primary Care Provider +[id number] 0-0000 Encounter Details Date Type Department Care Team Description 12/30/2019 Orders Only [facility] Doctor Unassigned, No [address] [facility] [place] [address] [address] [place] [address] Allergies Active Allergy Reactions Severity Noted Date Comments Ibuprofen Nausea and/or Vomiting 10/13/2015 documented as of this encounter (statuses as of 12/30/2019) Medications Medication Sig Dispensed Refills Start Date End Date Status ranitidine (ZANTAC) 150 Take 1 Tab by 60 Tab 0 10/13/2015 Active mg tablet mouth 2 (two) times daily. documented as of this encounter (statuses as of 12/30/2019) Active Problems No known active problemsdocumented as of this encounter (statuses as of 12/30/2019) Social History Tobacco Use Types Packs/Day Years Used Date Never Smoker Smokeless Tobacco: Never Used Alcohol Use Drinks/Week oz/Week Comments Yes occasionally Sex Assigned at Date Recorded Not on file Job Start Date Occupation Industry Not on file Not on file Not on file Travel History Travel Start Travel End No recent travel history available. documented as of this encounter Last Filed Vital Signs Not on filedocumented in this encounter Plan of Treatment Date Type Specialty Care Team Description 01/20/2020 Appointment Radiology Kateryna Pedro , JILLIANP [address] [facility]. [facility] [address] [place], [place] [address] Health Maintenance Due Date Last Done Comments VARICELLA VACCINES (1 of 2 - 11/02/1992 2-dose childhood series) DTaP,Tdap,and Td Vaccines (1 - 11/02/2002 Tdap) PAP SMEAR 11/02/2012 08/30/2009 INFLUENZA VACCINE (Season Ended) 2020 Depression Screening 11/30/2020 12/01/2019 PNEUMOCOCCAL 0-64 YEARS COMBINED Aged Out No longer eligible based on SERIES patient's age to complete this topic documented as of this encounter Procedures Procedure Name Priority Date/Time Associated Diagnosis Comme nts REFERRAL- Routine 12/30/2019 12:01 AM CDT REQUEST/RESPONSE documented in this encounter Results Not on filedocumented in this encounter
--- OUTSIDE RECORDS SUMMARY | 2020-03-20 08:15 | XMS REPORT | Summary of Care ---
:1990 Author Organization [facility] Address [address] [place] [address] Care Team Providers Name Role Phone Pcp, Patient Does Not Have A Primary Care Provider +[id number] Reason for Visit Radiology Services (Routine) Status Reason Specialty Diagnoses / Referred By Referred To Procedures Contact Contact New Request Diagnostic Diagnoses Breast pain in female Kateryna Pedro Radiology Procedures BI ULTRASOUND BREAST COMPLETE BILATERAL BI ULTRASOUND BREAST COMPLETE RIGHT O, [facility] [address] [address] Encounter Details Date Type Department Care Team Description 01/20/2020 Hospital Encounter [facility] Breast Kateryna Pedro O , Arrived Imaging [facility] [address] [place] [address] [address] [address] [place], [place] [address] Allergies Active Allergy Reactions Severity Noted Date Comments Ibuprofen Nausea and/or Vomiting 10/13/2015 documented as of this encounter (statuses as of 01/21/2020) Medications Medication Sig Dispensed Refills Start Date End Date Status ranitidine (ZANTAC) 150 Take 1 Tab by 60 Tab 0 10/13/2015 Active mg tablet mouth 2 (two) times daily. documented as of this encounter (statuses as of 01/21/2020) Active Problems No known active problemsdocumented as of this encounter (statuses as of 01/21/2020) Social History Tobacco Use Types Packs/Day Years Used Date Never Smoker Smokeless Tobacco: Never Used Alcohol Use Drinks/Week oz/Week Comments Yes occasionally Sex Assigned at Date Recorded Not on file Job Start Date Occupation Industry Not on file Not on file Not on file Travel History Travel Start Travel End No recent travel history available. COVID-19 Exposure Response Date Recorded In the last month, have you been in contact with No / Unsure 01/20/2020 12:29 PM CDT someone who was confirmed or suspected to have Coronavirus / COVID-19? documented as of this encounter Last Filed Vital Signs Not on filedocumented in this encounter Plan of Treatment Health Maintenance Due Date Last Done Comments [...] encounter Procedures Procedure Name Priority Date/Time Associated Comments Diagnosis BI ULTRASOUND BREAST Routine 01/20/2020 1:10 PM Breast pain i n Results for this COMPLETE BILATERAL CDT female procedure are in the results section. documented in this encounter Results BI ULTRASOUND BREAST COMPLETE BILATERAL (01/20/2020 1:10 PM CDT) Specimen Narrative Performed At This result has an attachment that is no t available. Examination: PACS BI ULTRASOUND BREAST COMPLETE BILATERAL History: Patient is 29 year old and is seen for: Bilateral br east pain. 1cm mass at noon on right breast. Comparisons : None available Findings: Complete breast ultrasound was performed including all 4 quadrants and the subareolar region. The axilla was also included. There are no sonographic abnormalities at the site of the palpable areas of concern at 12 o'clock, 10 cm from the nipple and at 1 o'clock, 8 cm from the nipple of the right breast as indicated by th e patient. There is no sonographic abnormality at the site of the patient's pain in the lower inner quadrant of the left breast. No suspicious masses or areas of abnormal shadowing ar e identified. There is no axillary lymphadenopathy. Impression: There is no sonographic evidence of malignancy in eith er breast. Normal breast tissue at the areas of pain and palpable areas of concern. Recommendation: Follow-up at age 40 or based on current ACR guidelines - Bilateral Clinical follow-up is also recommended and further man agement of clinical findings should be based on the results of clinical ev aluation. - Bilateral BI-RADS Category: Both 1 - Negative These findings and recommendations were discussed w ith the patient at the conclusion of today's examination. Performing Organization Address City/State/Zipcode Phone Number PACS documented in this encounter Visit Diagnoses Diagnosis Breast pain in female Mastodynia documented in this encounter
[2020-03-20] MEDS ORDERED: NA CHLORIDE 0.9% 1,000 ML ONE (09:01)
--- NOTE | 2020-03-20 09:57 | EDPHYS ---
Physician Documentation [facility] Name: Alis Baumann Age: 29 yrs Sex: Female : 1990 Arrival Date: 03/20/2020 Time: 08:15 Bed 16 Private MD: ED Physician Kevin Hooks HPI: 03/20 08:31 This 29 yrs old Female presents to ER via Unassigned with complaints of Sore rn Throat, Dizziness. 08:31 The patient presents with sore throat. The patient describes throat pain as raw. Onset: rn The symptoms/episode began/occurred 3 day(s) ago. Severity of symptoms: At their worst the symptoms were mild, in the emergency department the symptoms are unchanged. Modifying factors: The symptoms are alleviated by nothing, the symptoms are aggravated by swallowing. The patient has not experienced similar symptoms in the past. Reports sore throat for 3 days, also with dizziness, is able to swallow but with some pain so has limited herself to soups and fluids, feels dizzy and lightheaded. No fever but having "hot periods" during night. Told to come for eval by work. No known COVID contacts. No trauma. . 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 - Social history:: Smoking status: Patient denies any tobacco usage or history of. - Family history:: not pertinent. - Hospitalizations: : No recent hospitalization is reported. ROS: 08:31 Constitutional: Negative for fever, chills, and weight loss, Eyes: Negative for injury, rn pain, redness, and discharge, Neck: Negative for injury Cardiovascular: Negative for chest pain, palpitations, and edema, Respiratory: Negative for shortness of breath, cough, wheezing, and pleuritic chest pain, Abdomen/GI: Negative for abdominal pain, nausea, vomiting, diarrhea, and constipation, MS/Extremity: Negative for injury and deformity, Skin: Negative for injury, rash, and discoloration, Neuro: Negative for headache, weakness, numbness, tingling, and seizure. Exam: 08:31 Constitutional: This is a well developed, well nourished patient who is awake, alert, rn and in no acute distress. Head/Face: Normocephalic, atraumatic. ENT: No stridor, no tonsillar swelling or exudate, uvula not swollen. Neck: Trachea midline, no thyromegaly or masses palpated, and no cervical lymphadenopathy. Supple, full range of motion without nuchal rigidity, or vertebral point tenderness. No Meningismus. Cardiovascular: Regular rate and rhythm. No pulse deficits. Respiratory: No increased work of breathing, no retractions or nasal flaring. Skin: Warm, dry MS/ Extremity: Pulses equal, no cyanosis. Neuro: Awake and alert, GCS 15 Vital Signs: 08:32 BP 127 / 80; Pulse 84; Resp 16; Temp 98.6; Pulse Ox 100% on R/A; Weight 85.73 kg; iw Height 5 ft. 1 in. (154.94 cm); Pain 8/10; 09:25 BP 120 / 36; Pulse 75; Resp 17; Pulse Ox 100% on R/A; tw2 10:50 BP 110 / 53; Pulse 60; Resp 17; Pulse Ox 100% on R/A; tw2 08:32 Body Mass Index 35.71 (85.73 kg, 154.94 cm) iw MDM: 08:24 Patient medically screened. rn 09:55 Differential diagnosis: group A strep tonsillitis, influenza, laryngitis, upper rn respiratory infection, viral syndrome COVID-19. Data reviewed: vital signs, nurses notes, lab test result(s), and as a result, I will discharge patient. Counseling: I had a detailed discussion with the patient and/or guardian regarding: the historical points, exam findings, and any diagnostic results supporting the discharge/admit diagnosis, lab results, the need for outpatient follow up, to return to the emergency department if symptoms worsen or persist or if there are any questions or concerns that arise at home. Response to treatment: the patient's symptoms have mildly improved after treatment, and as a result, I will discharge patient. Special discussion: I discussed with the patient/guardian in detail that at this point there is no indication for admission to the hospital. It is understood, however, that if the symptoms persist or worsen the patient needs to return immediately for re-evaluation. 03/20 08:31 Order name: Strep; Complete Time: 09:55 rn 03/20 08:31 Order name: Flu; Complete Time: 09:55 rn 03/20 08:31 Order name: COVID-19 rn 03/20 08:31 Order name: IV Start; Complete Time: 09:05 rn 03/20 09:40 Order name: Throat Culture EDMS Administered Medications: 09:05 Drug: NS 0.9% 1000 ml Route: IV; Rate: 1000 ml; Site: right antecubital; tw2 10:50 Follow up: Response: No adverse reaction; IV Status: Completed infusion; IV Intake: tw2 1000ml Disposition: 03/20/20 09:56 Discharged to Home. Impression: Pain in throat. - Condition is Stable. - Discharge Instructions: Sore Throat. - Prescriptions for Zithromax Z- Prosper 250 mg Oral Tablet - take 1 tablet by ORAL route as directed for 5 days Day 1 - take two (2) tablets one time. Day 2, 3, 4 , 5 take one (1) tablet once daily.; 6 tablet. - Medication Reconciliation Form, Thank You Letter, Antibiotic Education, Prescription Opioid Use, Work release form form. - Follow up: Private Physician; When: As needed; Reason: Recheck today's complaints, Re-evaluation by your physician. - Problem is new. - Symptoms are unchanged. Signatures: Dispatcher [employer] EDMarla Montero, Kevin Clayton RN, MD MD rn Wise, Tara, RN RN tw2 Corrections: (The following items were deleted from the chart) 10:51 09:56 03/20/2020 09:56 Discharged to Home. Impression: Pain in throat. Condition is tw2 Stable. Discharge Instructions: Sore Throat. Prescriptions for Zithromax Z-Prosper 250 mg Oral Tablet - take 1 tablet by ORAL route as directed for 5 days Day 1 - take two (2) tablets one time. Day 2, 3, 4 , 5 take one (1) tablet once daily.; 6 tablet. and Forms are Work release form, Medication Reconciliation Form, Thank You Letter, Antibiotic Education, Prescription Opioid Use. Follow up: Private Physician; When: As needed; Reason: Recheck today's complaints, Re-evaluation by your physician. Problem is new. Symptoms are unchanged. rn
--- NOTE | 2020-03-20 09:57 | ER ---
Nurse's Notes [facility] Name: Alis Baumann Age: 29 yrs Sex: Female : 1990 Arrival Date: 03/20/2020 Time: 08:15 Bed 16 Private MD: Diagnosis: Pain in throat Presentation: 03/20 08:32 Chief complaint: Patient states: throat feels swollen and painful, started Malcolm, also iw has bee feeling dizzy since then, feels hot at night, no fever. Coronavirus screen: runny nose, sore throat, Client presents with at least one sign or symptom that may indicate coronavirus-19. Standard/surgical mask placed on the client. Provider contacted for isolation considerations. The client denies any previous COVID testing. Ebola Screen: Patient negative for fever greater than or equal to 101.5 degrees Fahrenheit, and additional compatible Ebola Virus Disease symptoms Patient denies exposure to infectious person. Patient denies travel to an Ebola-affected area in the 21 days before illness onset. No symptoms or risks identified at this time. Initial Sepsis Screen: Does the patient meet any 2 criteria? No. Patient's initial sepsis screen is negative. Does the patient have a suspected source of infection? No. Patient's initial sepsis screen is negative. Risk Assessment: Do you want to hurt yourself or someone else? Patient reports no desire to harm self or others. Onset of symptoms was March 18, 2020. 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 - Social history:: Smoking status: Patient denies any tobacco usage or history of. - Family history:: not pertinent. - Hospitalizations: : No recent hospitalization is reported. Screenin:28 Abuse screen: Denies threats or abuse. Nutritional screening: No deficits noted. tw2 Tuberculosis screening: No symptoms or risk factors identified. Fall Risk None identified. Assessment: 08:45 General: Appears in no apparent distress. Behavior is calm, cooperative, appropriate tw2 for age. Pain: Complains of pain in uvula, left aspect of posterior pharynx and right aspect of posterior pharynx. Neuro: Level of Consciousness is awake, alert, obeys commands, Oriented to person, place, time, situation. Neuro: Reports dizziness. Cardiovascular: Capillary refill < 3 seconds Patient's skin is warm and dry. Respiratory: Airway is patent Respiratory effort is even, unlabored, Respiratory pattern is regular, symmetrical, Breath sounds are clear bilaterally. GI: No signs and/or symptoms were reported involving the gastrointestinal system. GI: Abdomen is flat. : No signs and/or symptoms were reported regarding the genitourinary system. EENT: Throat is reddened. Derm: No signs and/or symptoms reported regarding the dermatologic system. Musculoskeletal: Circulation, motion, and sensation intact. Range of motion: intact in all extremities. 09:25 Reassessment: Patient appears in no apparent distress at this time. No changes from tw2 previously documented assessment. Patient and/or family updated on plan of care and expected duration. Pain level reassessed. Patient is alert, oriented x 3, equal unlabored respirations, skin warm/dry/pink. 10:50 Reassessment: Patient appears in no apparent distress at this time. No changes from tw2 previously documented assessment. Patient and/or family updated on plan of care and expected duration. Pain level reassessed. Patient is alert, oriented x 3, equal unlabored respirations, skin warm/dry/pink. Vital Signs: 08:32 BP 127 / 80; Pulse 84; Resp 16; Temp 98.6; Pulse Ox 100% on R/A; Weight 85.73 kg; iw Height 5 ft. 1 in. (154.94 cm); Pain 8/10; 09:25 BP 120 / 36; Pulse 75; Resp 17; Pulse Ox 100% on R/A; tw2 10:50 BP 110 / 53; Pulse 60; Resp 17; Pulse Ox 100% on R/A; tw2 08:32 Body Mass Index 35.71 (85.73 kg, 154.94 cm) iw ED Course: 08:15 Patient arrived in ED. as 08:24 Kevin Hooks MD is Attending Physician. rn 08:29 Malik Javed RN is Primary Nurse. jl7 08:30 Bed in low position. Call light in reach. Pulse ox on. NIBP on. tw2 08:34 Triage completed. iw 08:34 Arm band placed on. iw 09:06 Inserted saline lock: 20 gauge in right antecubital area, using aseptic technique. tw2 ,using aseptic technique. per YOLIE Gutiérrez. 09:19 Primary Nurse role handed off by Malik Javed RN tw2 09:19 Hilary Gomez, RN is Primary Nurse. tw2 10:50 No provider procedures requiring assistance completed. IV discontinued, intact, tw2 bleeding controlled, No redness/swelling at site. Pressure dressing applied. Administered Medications: 09:05 Drug: NS 0.9% 1000 ml Route: IV; Rate: 1000 ml; Site: right antecubital; tw2 10:50 Follow up: Response: No adverse reaction; IV Status: Completed infusion; IV Intake: tw2 1000ml Intake: 10:50 IV: 1000ml; Total: 1000ml. tw2 Outcome: 09:56 Discharge ordered by . rn 10:50 Discharged to home ambulatory. tw2 10:50 Condition: stable 10:50 Discharge instructions given to patient, Instructed on discharge instructions, follow up and referral plans. medication usage, Demonstrated understanding of instructions, follow-up care, medications, Prescriptions given X 1. 10:51 Patient left the ED. tw2 Signatures: Denise Kay Irene, RN RN iw Kevin Hooks MD MD rn Wise, Tara, RN RN tw2 Malik Javed RN RN jl7
[2020-03-20 11:28] VITALS: TEMP 98.6; O2SAT 100
[2020-03-20 11:30] VITALS: BP 110/53
== END 2020-03-20 10:51 | disposition home or self-care (01) ==
LOC: ER 08:12
DX: R07.0 Pain in throat (principal); Z88.6 Allergy status to analgesic agent
CPT/HCPCS: 87070; 87081; 87804; 96360; 96361; 99284; J7030; U0002

== ENCOUNTER 2021-10-06 11:30 | Emergency (ER) | payer SELFPAY ==
--- OUTSIDE RECORDS SUMMARY | 2021-10-06 11:34 | XMS REPORT | Continuity of Care Document ---
:1990 Author Organization [facility] t Address [address] [place] [address] Dr. Bernabe [address] [place] [address] Care Team Providers Name Role Phone MARIA C_Kurtis Attending Clinician Unavailable MARIA C_Kurtis Admitting Clinician Unavailable Payers Payer Name Policy Type Policy Number Effective Date Expiration Date S kellie [employer] - CHOICE (POS [id number]) Problems This patient has no known problems. Allergies, Adverse Reactions, Alerts This patient has no known allergies or adverse reactions. Medications This patient has no known medications. Procedures This patient has no known procedures. Encounters Start End Encounter Admission Attending Care Care Encounter Source Date/Time Date/Time Type Type Clinicians Facility Department ID 2020-06-21 2020-06-21 Outpatient [facility] [id number] [place] 02:49:00 02:49:00 [facility] Results This patient has no known results.
[2021-10-06] MEDS ORDERED: ONDANSETRON 4 MG/2 ML VIAL ONE (12:02)
[2021-10-06] MEDS ORDERED: MORPHINE 4 MG/ML SYR ONE (12:02)
[2021-10-06] MEDS ORDERED: DIAZEPAM 10 MG/2 ML INJ SYRINGE ONE ×2 (13:08→16:17)
--- NOTE | 2021-10-06 13:39 | RAD REPORT ---
EXAM DESCRIPTION: RAD - Knee Left 3 View - 10/06/2021 1:25 pm CLINICAL HISTORY: fall COMPARISON: No comparisons FINDINGS: No acute fracture. No malalignment. No significant focal degenerative changes. IMPRESSION: No acute osseous abnormality involving the left knee.
--- NOTE | 2021-10-06 13:40 | RAD REPORT ---
EXAM DESCRIPTION: RAD - Femur Left - 10/06/2021 1:25 pm CLINICAL HISTORY: fall COMPARISON: No comparisons FINDINGS: No acute fracture. No malalignment. No significant focal degenerative changes. IMPRESSION: No acute osseous abnormality involving the left femur.
--- NOTE | 2021-10-06 15:33 | RAD REPORT ---
EXAM DESCRIPTION: CT - Pelvis Wo Cont - 10/06/2021 3:18 pm CLINICAL HISTORY: fall, left hip pain COMPARISON: No comparisons FINDINGS: No pelvic or hip fractures identified. Mild degenerative changes are present L5-S1. Both h ips are located. No significant focal degenerative changes. No acute soft tissue abnormality. IMPRESSION: No pelvic or hip fracture identified.
--- NOTE | 2021-10-06 17:00 | RAD REPORT ---
EXAM DESCRIPTION: RAD - Ankle Left 3 View - 10/06/2021 4:55 pm CLINICAL HISTORY: ankle COMPARISON: Knee Left 3 View dated 10/06/2021; Pelvis Wo Cont dated 10/06/2021; Femur Left dated 2 FINDINGS/IMPRESSION: No acute fracture. No malalignment. No significant focal degenerative changes.
--- NOTE | 2021-10-06 17:31 | EDPHYS ---
Physician Documentation [facility] Name: Alis Baumann Age: 30 yrs Sex: Female : 1990 Arrival Date: 10/06/2021 Time: 11:32 Bed 14 Private MD: ED Physician Kevin Hooks HPI: 10/06 11:52 This 30 yrs old Female presents to ER via Wheelchair with complaints of Fall Injury, jmm Leg Injury, Leg Pain, Ankle Swelling. 11:52 Details of fall: The patient fell from an upright position. Onset: The symptoms/episode jmm began/occurred acutely, just prior to arrival. This is a 30-year-old female with history of endometriosis the presents emerged part with complaints of pain from her left hip down to her ankle after stepping through a tile floor approximately 2 feet down. Is unable to localize focal point of pain. Denies head injury. 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 - Social history:: Smoking status: Patient reports the use of cigarette tobacco products, Patient denies any tobacco usage or history of. ROS: 11:52 Constitutional: Negative for fever, chills, and weight loss, Cardiovascular: Negative jmm for chest pain, palpitations, and edema, Respiratory: Negative for shortness of breath, cough, wheezing, and pleuritic chest pain. 11:52 MS/extremity: Positive for pain. 11:52 All other systems are negative. Exam: 11:52 Constitutional: This is a well developed, well nourished patient who is awake, alert, jmm and in no acute distress. Head/Face: atraumatic. Eyes: EOMI, no conjunctival erythema appreciated ENT: Moist Mucus Membranes Neck: Trachea midline, Supple Chest/axilla: Normal chest wall appearance and motion. Cardiovascular: Regular rate and rhythm. No edema appreciated Respiratory: Normal respirations, no respiratory distress appreciated Abdomen/GI: Non distended, soft Back: Normal ROM Skin: General appearance color normal 11:52 Musculoskeletal/extremity: No no deformity is appreciated to the left leg in its entirety, compartments are soft, full dorsalis pedis pulse appreciated, full range of motion appreciated to the left hip and left knee, and left ankle patient is exquisitely tender upon palpation of any region of the left leg. Vital Signs: 11:52 BP 121 / 70; Pulse 76; Resp 16; Temp 97.7(T); Pulse Ox 99% on R/A; Pain 9/10; ag7 13:07 BP 122 / 60; Pulse 73; Resp 16; Pulse Ox 100% ; Pain 2/10; cb5 13:30 BP 121 / 68; Pulse 70; Resp 16; Pulse Ox 98% ; Pain 0/10; cb5 14:30 BP 115 / 64; Pulse 71; Resp 16; Pulse Ox 98% ; Pain 0/10; cb5 MDM: 11:52 Patient medically screened. [facility] 17:23 Data reviewed: vital signs, nurses notes. Counseling: I had a detailed discussion with patrice the patient and/or guardian regarding: the historical points, exam findings, and any diagnostic results supporting the discharge/admit diagnosis, radiology results, the need for outpatient follow up, to return to the emergency department if symptoms worsen or persist or if there are any questions or concerns that arise at home. 17:23 ED course: Imaging studies are negative. Patient is advised to follow up with pcp and jmm otherwise given strict return precautions. patient understood and agrees with the plan of care. . 10/06 11:54 Order name: Femur Left XRAY; Complete Time: 13:50 [facility] 10/06 11:54 Order name: Knee Left 3 View XRAY; Complete Time: 13:50 [facility] 10/06 13:52 Order name: CT Pelvis wo Cont; Complete Time: 15:44 [facility] 10/06 16:21 Order name: Ankle Left 3 View XRAY; Complete Time: 17:13 [facility] 10/06 11:53 Order name: Saline Lock; Complete Time: 12:18 [facility] 10/06 15:46 Order name: Knee Immobilizer; Complete Time: 16:23 [facility] 10/06 15:46 Order name: Crutches; Complete Time: 16:23 [facility] Administered Medications: 12:00 Drug: morphine 4 mg Route: IVP; Site: right antecubital; cb5 12:17 Drug: Zofran (Ondansetron) 4 mg Route: IVP; Site: right antecubital; cb5 13:07 Drug: Valium (diazepam) 2 mg Route: IVP; Site: right antecubital; cb5 16:16 Drug: Valium (diazepam) 2 mg Route: IVP; Site: right antecubital; cb5 Disposition: 17:56 Co-signature as Attending Physician, Kevin Hooks MD I agree with the assessment and rn plan of care. Attestation: The patient's history, exam findings, diagnostics, and a summary of any interventions or procedures was reviewed in detail with Alonzo RANDHAWA. Disposition Summary: 10/06/21 17:29 Discharge Ordered Location: Home [facility] Condition: Stable jmm Diagnosis - Sprain, Strain of the Ligaments and Muscles of the Left Lower Extremity, acute, jmm unspecified, initial visit Followup: [facility] - With: Jimbo Rees MD - When: 2 - 3 days - Reason: Recheck today's complaints, Continuance of care, Re-evaluation by your physician Discharge Instructions: - Discharge Summary Sheet jmm - Acute Knee Pain, Adult jmm - Hip Pain jmm - Ankle Sprain, Phase I Rehab-[facility] Forms: - Medication Reconciliation Form [facility] - Thank You Letter [facility] - Antibiotic Education [facility] - Prescription Opioid Use [facility] Prescriptions: - gabapentin 300 mg Oral capsule - take 1 capsule by ORAL route 3 times per day; 30 capsule; Refills: 0, Product [facility] Selection Permitted - orphenadrine citrate 100 mg Oral Tablet Sustained Release - take 1 tablet by ORAL route 2 times per day As needed; 20 tablet; Refills: 0, [facility] Product Selection Permitted Signatures: Dispatcher [employer] Alonzo Brown PA PA [facility] Kevin Hooks MD MD rn Boman, Colleen RN RN cb5 Jocelyn Wakefield RN RN ag7
--- NOTE | 2021-10-06 17:31 | ER ---
Nurse's Notes [facility] Name: Alis Baumann Age: 30 yrs Sex: Female : 1990 Arrival Date: 10/06/2021 Time: 11:32 Bed 14 Private MD: Diagnosis: Sprain, Strain of the Ligaments and Muscles of the Left Lower Extremity, acute, unspecified, initial visit Presentation: 10/06 11:47 Chief complaint: Spouse and/or significant other states: "Patient fell this morning two ag7 feet through the floor". Care prior to arrival: Medication(s) given: Advil. Mechanism of Injury: Fall. Trauma event details: Injury occurred in the [facility], Injury occurred: at home. Injury occurred: October 06, 2021. 11:47 Acuity: MELODY 3 ag7 11:47 Method Of Arrival: Wheelchair ag7 12:12 Coronavirus screen:. jd3 12:13 Ebola Screen: No symptoms or risks identified at this time. Initial Sepsis Screen: Does jd3 the patient meet any 2 criteria? No. Patient's initial sepsis screen is negative. Does the patient have a suspected source of infection? No. Patient's initial sepsis screen is negative. Risk Assessment: Do you want to hurt yourself or someone else? Patient reports no desire to harm self or others. Onset of symptoms was October 06, 2021. 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 - Social history:: Smoking status: Patient reports the use of cigarette tobacco products, Patient denies any tobacco usage or history of. Screenin:24 Abuse screen: Denies threats or abuse. Denies injuries from another. Nutritional cb5 screening: No deficits noted. Tuberculosis screening: No symptoms or risk factors identified. Fall Risk None identified. Assessment: 11:40 General: Appears uncomfortable, obese, well groomed, Behavior is restless. Pain: cb5 Complains of pain in left hip. left leg, left ankle. Neuro: No deficits noted. Level of Consciousness is awake, alert, obeys commands, Oriented to person, place, time, situation, Appropriate for age. Cardiovascular: No deficits noted. Respiratory: No deficits noted. GI: No deficits noted. : No deficits noted. EENT: No deficits noted. Derm: No deficits noted. Musculoskeletal: Reports pt reports falling through tile floor in kitchen that caved in. C/O of pain in left hip, left leg, and ankle. No visual busing present. Skin intact, no redness, no abrasions noted. 12:15 Reassessment: pt does not want Valium yet. cb5 12:30 Pain: Pain currently is 4 out of 10 on a pain scale. cb5 13:07 General: pt requested her ordered Valium at this time. cb5 13:35 General: pt resting comfortably, is at the bedside. Safety precautions are in cb5 effect call light in reach.. 15:01 Reassessment: Patient and/or family updated on plan of care and expected duration. Pain cb5 level reassessed. Vital Signs: 11:52 BP 121 / 70; Pulse 76; Resp 16; Temp 97.7(T); Pulse Ox 99% on R/A; Pain 9/10; ag7 13:07 BP 122 / 60; Pulse 73; Resp 16; Pulse Ox 100% ; Pain 2/10; cb5 13:30 BP 121 / 68; Pulse 70; Resp 16; Pulse Ox 98% ; Pain 0/10; cb5 14:30 BP 115 / 64; Pulse 71; Resp 16; Pulse Ox 98% ; Pain 0/10; cb5 ED Course: 11:32 Patient arrived in ED. jj6 11:38 Alonzo Kuhn PA is PHCP. [facility] 11:38 Kevin Hooks MD is Attending Physician. [facility] 11:38 Denise Alvarez, YOLIE is Primary Nurse. cb5 11:51 Triage completed. ag7 11:52 Arm band placed on right wrist. ag7 12:23 No provider procedures requiring assistance completed. cb5 12:24 Patient has correct armband on for positive identification. Call light in reach. Side cb5 rails up X 1. 13:24 Femur Left XRAY In Process Unspecified. EDMS 13:25 Knee Left 3 View XRAY In Process Unspecified. EDMS 15:18 CT Pelvis wo Cont In Process Unspecified. EDMS 16:27 Crutch training done. Knee immobilizer applied on left knee. dh3 16:55 Ankle Left 3 View XRAY In Process Unspecified. EDMS 17:28 Cabrera, Jimbo, MD is Referral Physician. [facility] 17:52 IV discontinued, intact, bleeding controlled, No redness/swelling at site. Pressure jl7 dressing applied. Administered Medications: 12:00 Drug: morphine 4 mg Route: IVP; Site: right antecubital; cb5 12:17 Drug: Zofran (Ondansetron) 4 mg Route: IVP; Site: right antecubital; cb5 13:07 Drug: Valium (diazepam) 2 mg Route: IVP; Site: right antecubital; cb5 16:16 Drug: Valium (diazepam) 2 mg Route: IVP; Site: right antecubital; cb5 Outcome: 17:29 Discharge ordered by MD. patrice 17:52 Discharged to home ambulatory. andrew 17:52 Condition: stable 17:52 Discharge instructions given to patient, family, Instructed on discharge instructions, follow up and referral plans. medication usage, Demonstrated understanding of instructions, follow-up care, medications, Prescriptions given X 2. 17:53 Patient left the ED. jlLuis Signatures: Dispatcher [employer] EDMS Alonzo Kuhn PA PA [facility] Malik Javed RN RN jl7 Ximena Shrestha 3 Riley Sebastian RN RN jd3 Sushma Wallsj6 Denise Alvarez, RN RN cb5 Jocelyn Wakefield RN RN ag7
[2021-10-06 18:10] VITALS: TEMP 97.7
[2021-10-06 18:13] VITALS: O2SAT 98
[2021-10-06 18:14] VITALS: BP 115/64
== END 2021-10-06 17:53 | disposition home or self-care (01) ==
LOC: ER 11:30
DX: S93.402A Sprain of unspecified ligament of left ankle, initial encounter (principal); W17.89XA Other fall from one level to another, initial encounter; Z88.6 Allergy status to analgesic agent
CPT/HCPCS: 72192; 96374; 96375; 99284; J2405; J3360

== ENCOUNTER 2022-04-11 07:41 | Day surgery (SDC) | payer BC ==
[2022-04-11] MEDS ORDERED: Ringers Lactate 1,000 ML IV ONE (08:02)
[2022-04-11 08:47] LABS: Urine Specific Gravity/Preg >1.030 (1.005-1.030)
[2022-04-11] MEDS ORDERED: propofoL 200 MG/20 ML VIAL IV ONE ×2 (09:54)
[2022-04-11] MEDS ORDERED: LIDOCAINE 1% MPF 5 ML VIAL ONE (09:55)
[2022-04-11] MEDS ORDERED: GLYCOPYRROLATE 0.2 MG/ML SYR ONE (09:55)
--- NOTE | 2022-04-11 10:05 | ENDO RPT ---
[address], [address] EGD PROCEDURE REPORT EXAM DATE: 04/11/2022 PATIENT NAME: Alis Baumann MR#: [id number] BIRTHDATE: 1990 ATTENDING: Edison Landry DR STATUS: outpatient LANDSCAPE ARTIST: Salena Batista RN and Charles Santos [facility] INDICATIONS: The patient is a 31 yr old Female here for an EGD due to epigastric pain, dyspepsia, and GERD PROCEDURE PERFORMED: EGD with biopsy for H. pylori and EGD with biopsy MEDICATIONS: Per Anesthesia. TOPICAL ANESTHETIC: none CONSENT: The patient understands the risks and benefits of the procedure and understands that these risks include, but are not limited to: sedation, allergic reaction, infection, perforation and/or bleeding. Alternative means of evaluation and treatment include, among others: physical exam, x-rays, and/or surgical intervention. The patient elects to proceed with this endoscopic procedure. DESCRIPTION OF PROCEDURE: During intra-op preparation period all mechanical medical equipment was checked for proper function. Hand hygiene and appropriate measures for infection prevention was taken. Procedure, possible complications, and alternatives including but not limited to the possibility of bleeding, perforation, tear, infection, sepsis, need for surgery, need for blood transfusion, and anesthesia related complications were explained to the patient. After the risks, benefits and alternatives of the procedure were thoroughly explained, Informed consent was verified, confirmed and timeout was successfully executed by the treatment team. The patient was placed in the left lateral position. The patient was anesthetized with topical anesthesia. Through the anesthetized oropharyngeal area, the scope was passed without any difficulty. The Pentax EG-[id number] ([id number]) endoscope was introduced through the mouth and advanced to the third portion of the duodenum. Retroflexed views revealed a small hiatal hernia. The gastroscope was then slowly withdrawn and removed. Multiple erosions were found in the body and the antrum of the stomach. Multiple biopsies were obtained and sent to pathology. A biopsy for H. pylori was taken. Moderate gastritis was found in the body and the antrum of the stomach. Multiple biopsies were obtained and sent to pathology. A biopsy for H. pylori was taken. Normal duodenal folds were noted. Multiple biopsies were obtained and sent to pathology. The esophagus and gastroesophageal junction were completely normal in appearance. With standard forceps, a biopsy was obtained and sent to pathology. ADVERSE EVENTS: There were no complications. IMPRESSIONS: 1. Multiple erosions were found in the body and the antrum of the stomach 2. Moderate gastritis was found in the body and the antrum of the stomach 3. Normal duodenal folds 4. Normal esophagus RECOMMENDATIONS: 1. anti-reflux regimen 2. acid suppression therapy 3. await biopsy results 4. avoid NSAIDS 5. follow-up: office 2 week(s) 6. follow-up of helicobacter pylori status, treat if indicated REPEAT EXAM: dEison Landry DR eSigned: Edison Landry DR 04/11/2022 10:04 AM cc: CPT CODES: ICD9 CODES: PATIENT NAME: Alis Baumann MR#: [id number]
[2022-04-11 10:10] LABS: SARS-CoV-2 Antigen Rapid Res Negative (Negative)
[2022-04-11 11:16] VITALS: BP 134/66; TEMP 96.8; O2SAT 97
== END 2022-04-11 11:00 | disposition home or self-care (01) ==
LOC: OR 07:41
PROVIDERS: ATTEND Surgery
PROC: 0DB78ZX Excision of Stomach, Pylorus, Via Natural or Artificial Opening Endoscopic, Diagnostic (ICD-10-PCS; 2022-04-11)
PROC: 0DB68ZX Excision of Stomach, Via Natural or Artificial Opening Endoscopic, Diagnostic (ICD-10-PCS; 2022-04-11)
PROC: 0DB48ZX Excision of Esophagogastric Junction, Via Natural or Artificial Opening Endoscopic, Diagnostic (ICD-10-PCS; 2022-04-11)
PROC: 0DB98ZX Excision of Duodenum, Via Natural or Artificial Opening Endoscopic, Diagnostic (ICD-10-PCS; principal; 2022-04-11 09:45)
DX: R10.13 Epigastric pain (principal); K29.50 Unspecified chronic gastritis without bleeding; K21.00 Gastro-esophageal reflux disease with esophagitis, without bleeding; K25.9 Gastric ulcer, unspecified as acute or chronic, without hemorrhage or perforation; Z20.822 Contact with and (suspected) exposure to COVID-19
CPT/HCPCS: 36415; 88312; 81025; 88305; 87811; 43239; J2704 ×2; J2001; J7120